=== PATIENT | female | born 1955 | race Caucasian/White ===

== ENCOUNTER 2016-11-16 13:17 | Emergency (ER) | payer OTHER ==
[~2016-11-16] VITALS: Ht 167.6 cm; Wt 61.2 kg
[~2016-11-16 13:17] MED LIST: DILAUDID 4 MG TA4 MG PO; ENDOCET 325 MG-1 TAB PO; METHADONE5 MG; MORPHINE SULFAT30 M5 PO; OXYCODONE HCL15 MG PO; OXYCONTIN30 MG PO; PREDNISONE 10MG10 M1 PO; PREDNISONE10 MG PO; ROXICODONE30 MG PO; ZOLOFT25 MG PO
[2016-11-16] MEDS ORDERED: DILAUDID2 M1 PO (15:55)
--- NOTE | 2016-11-16 15:56 | ED NECK/BACK PAIN COMPLAINT ---
History of Present Illness General Chief Complaint: Low Back Pain/Injury Stated Complaint: BACK PAIN Source: patient Exam Limitations: no limitations Vital Signs & Intake/Output Vital Signs & Intake/Output Vital Signs Date Time Temp Pulse Resp B/P Pulse O2 O2 Flow FiO2 Ox Delivery Rate 11/16 1615 97.4 78 18 114/75 96 Room Air Room Air 11/16 1322 97.2 79 16 115/80 95 Room Air Allergies Coded Allergies: MDX - SULFA (sulfonamide) (SULFA (SULFONAMIDE)) (Intermediate, HEADLEY IN CHEST, FEEL LIKE SOMETHING FIGHTING IN CHEST PER PT 01/17/15) MDX - Ibuprofen (IBUPROFEN) (HEADLEY IN CHEST AND FEELS SICK PER PT 01/17/15) Uncoded Allergies: FISH DYES? (Intermediate, SEVERE HEADACHE, N/V 01/17/15) Reconcile Medications Hydromorphone HCl (Dilaudid) 2 MG TABLET 1 TAB PO BIDP PRN pain OXYCODONE HCL (Oxycodone HCl) 15 MG TABLET 1 TAB PO 4 TIMES/DAY PRN PAIN ( Reported) OXYCODONE HCL (Oxycontin) 30 MG TAB.ER.12H 1 TAB PO TID PRN PAIN (Reported) Sertraline Hydrochloride (Zoloft) 25 MG TAB 75 MG PO DAILY MENTAL HEALTH ( Reported) Triage Note: 61 Y/O FEMALE C/O "SHARP STABBING" PAIN TO R LOWER BACK RADIATING INTO R GROIN. CONSTANT SINCE ONSET. PT STATES SHE HAS A HX OF DISC PROBLEMS AND SHE OCCASIONALLY GETS PAIN LIKE THIS BUT IT USUALLY GOES AWAY. STATES "ITS USUALLY A NERVE THING". PT DENIES ANY RECENT INJURIES OR TRAUMA. DENIES PAIN RADIATING DOWN LEG. DENIES URINARY SYMPTOMS. TAKES DAILY PAIN MEDS AND TOOK THIS AM WITH NO CHANGE IN PAIN. DECLINES OFFER OF W/C. Triage Nurses Notes Reviewed? yes Onset: Gradual Duration: worse persistent since (3 days) Timing: recent history Quality/Severity: moderate Location: paraspinous muscles Radiation: none Context: old injury Method of Injury: twisted Modifying Factors: immobilization, movement HPI: Patient is a 61-year-old female presenting to the emergency department with chief complaint of right low back pain worsening over the past 3-4 days. History of back pain, on chronic pain medication, on pain management. She says she lifting a 40 pound bag of cat food, she did not have any pain initially but then started experiencing pain later that evening. Denies any urinary incontinence or retention. No dysuria urgency or frequency. Denies hematuria. Movement seems to make the pain worse nothing seems to make it better. She's been taking her abdominal pain medication without relief. Denies any weakness. (ASAD BROUSSARD) Past History Travel History Traveled to [place] past 21 day No Medical History Any Pertinent Medical History? 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 No (ASAD BROUSSARD) Review of Systems Review of Systems Constitutional: Reports: no symptoms. Comments Review of systems: See HPI, All other systems negative. Constitutional, no chills fever or weight loss HEENT: No visual changes no sore throat no congestion Cardiovascular: No chest pain ,palpitation Skin, no jaundice no rashes Respiratory: No dyspnea cough sputum or hemoptysis GI: No nausea no vomiting : No dysuria No hematuria Muscle skeletal: no neck pain, Neurologic: No numbness no confusion Psych: No stress anxiety or depression,. Heme/endocrine: No bruising no bleeding no polyuria or polydipsia Immunology: No splenectomy or history of AIDS (ASAD BROUSSARD) Physical Exam Physical Exam General Appearance: well developed/nourished, no apparent distress, alert, awake , comfortable Neck: normal inspection, supple, full range of motion, normal alignment Comments: Well-developed well-nourished person in no acute distress HEENT: Pupils equally round and reactive to light and accommodation. Nose is atraumatic. Neck: No C-spine tenderness, full range of motion Back: Tender to palpation in the right paraspinal muscles of the lumbar spine. No midline tenderness. Limited range of motion with forward flexion. Negative modified straight leg raise bilaterally. Cardiovascular: Regular rate and rhythms no murmurs rubs or gallops, normal JVP Respiratory: Chest nontender. No respiratory distress.breath sounds clear to auscultation bilaterally Abdomen: Soft, nontender nondistended Extremity: No edema, difficulty with right hip flexion secondary to pain in the low back. Neuro: Alert oriented x3, motor sensory normal, patellar reflexes are 2+ bilaterally. Skin: No appreciable rash on exposed skin, skin is warm and dry. Psych: Mood and affect is normal, memory and judgment is normal. (ASAD BROUSSARD) Progress Differential Diagnosis: cauda equina syn, herniated disc, myofascial strain, pyelo/UTI, sciatica, T/L spine injury Plan of Care: Current Medications Sig/Jeremiah Start time Last Medication Dose Stop Time Status Admin Hydromorphone HCl 2 MG ONCE ONE 11/16 1600 UNVr (Dilaudid) 11/16 1601 Comments: 11/16/2016 4:14:25 PM patient is neurovascularly intact with reproducible pain in the right lumbar per spell region. Likely exacerbation of chronic pain. No signs of UTI. Patient denying any urinary symptoms. Patient given by mouth Dilaudid on arrival. She reports that she cannot take anti-inflammatories or steroids or muscle relaxers. 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 She is not driving home. she has a ride. no signs of cauda equina. (ASAD BROUSSARD) Departure Departure Time of Disposition: 1554 Disposition: HOME OR SELF CARE Condition: Stable Clinical Impression Primary Impression: Back pain Qualifiers: Back pain location: low back pain Chronicity: chronic Back pain laterality: right Sciatica presence: without sciatica Qualified Codes: M54.5 - Low back pain; G89.29 - Other chronic pain Referrals: JAMES SMITH MD (PCP/Family) Additional Instructions: follow up with your pain specialist , keep appt for wednesday. take dilaudid as prescribed. return for worsening symptoms or concerns. Departure Forms: Customer Survey General Discharge Information Prescriptions: Current Visit Scripts Hydromorphone HCl (Dilaudid) 1 TAB PO BIDP PRN pain #10 TAB (ASAD BROUSSARD) PA/REFRIGERATION ENGINE OPERATOR Co-Sign Statement Statement: ED Attending supervision documentation- [] I saw and evaluated the patient. I have also reviewed all the pertinent lab results and diagnostic results. I agree with the findings and the plan of care as documented in the PA's/REFRIGERATION ENGINE OPERATOR's documentation. [X] I have reviewed the ED Record and agree with the PA's/REFRIGERATION ENGINE OPERATOR's documentation. [] Additions or exceptions (if any) to the PAs/REFRIGERATION ENGINE OPERATOR's note and plan are summarized below: [] (JUNIOR GAMBOA DO)
[2016-11-16 16:15] VITALS: BP 114/75
== END 2016-11-16 16:15 ==
LOC: ERH 13:17
DX: M54.5 Low back pain (principal)

== ENCOUNTER 2016-11-18 17:38 | Emergency (ER) | payer OTHER ==
[~2016-11-18] VITALS: Ht 167.6 cm; Wt 61.2 kg
[~2016-11-18 17:38] MED LIST changes: +DILAUDID2 M1 PO
--- NOTE | 2016-11-18 19:43 | ED NECK/BACK PAIN COMPLAINT ---
History of Present Illness General Chief Complaint: Low Back Pain/Injury Stated Complaint: LOW BACK PAIN SEEN WEDNESDAY FOR SAME Source: patient, old records Exam Limitations: no limitations Vital Signs & Intake/Output Vital Signs & Intake/Output Vital Signs Date Time Temp Pulse Resp B/P Pulse O2 O2 Flow FiO2 Ox Delivery Rate 11/18 2154 98.2 80 16 157/80 98 Room Air Room Air 11/18 1746 97.4 78 18 133/79 97 Room Air ED Intake and Output 11/19 0000 11/18 1200 Intake Total 0 Output Total Balance 0 Intake, Oral 0 Patient 135 lb Weight Allergies Coded Allergies: MDX - SULFA (sulfonamide) (SULFA (SULFONAMIDE)) (Intermediate, HEADLEY IN CHEST, FEEL LIKE SOMETHING FIGHTING IN CHEST PER PT 01/17/15) MDX - Ibuprofen (IBUPROFEN) (HEADLEY IN CHEST AND FEELS SICK PER PT 01/17/15) Uncoded Allergies: FISH DYES? (Intermediate, SEVERE HEADACHE, N/V 01/17/15) Reconcile Medications Hydromorphone HCl (Dilaudid) 2 MG TABLET 1 TAB PO BIDP PRN breakthrough pain Hydromorphone HCl (Dilaudid) 2 MG TABLET 1 TAB PO BIDP PRN pain OXYCODONE HCL (Oxycodone HCl) 15 MG TABLET 1 TAB PO 4 TIMES/DAY PRN PAIN ( Reported) OXYCODONE HCL (Oxycontin) 30 MG TAB.ER.12H 1 TAB PO TID PRN PAIN (Reported) Sertraline Hydrochloride (Zoloft) 25 MG TAB 75 MG PO DAILY MENTAL HEALTH ( Reported) Triage Note: C/O R SIDED LOW BACK PAIN RADIAITNG TO R GROIN AND LEFT SIDE OF BACK X 8 DAYS. SEEN HERE ON 11/16. PAIN WORSE, NOT RELIEVED WITH DILAUDID. Triage Nurses Notes Reviewed? yes Onset: Abrupt Duration: week(s): (1) Quality/Severity: moderate, severe Location: paraspinous muscles Radiation: buttocks Context: lifting Loss of Consciousness: no loss of consciousness Modifying Factors: movement, pain medication, rest Associated Symptoms: denies HPI: 61-year-old female with history of chronic regional pain syndrome chronic back pain presents emergency room complaining of bilateral however right greater than left lower back pain that has been present for the past 1 week after she states she lifted a 40 pound bag of cat litter. The patient is seen by pain management in [place] and is on opana, and oxycodone. there was no recent new injury or trauma. pt was taking dilaudid for breakthrough pain however states no longer helping. Denies any urinary incontinence or retention. she denies any urinary symptoms- no dysuria urgency or frequency. change in position makes pain worse. pain radiates into her right buttocks. no abd pain, n/vd. no chest pain, fever or chills (BALTAZAR KLEIN) Past History Travel History Traveled to [place] past 21 day No Medical History Any Pertinent Medical History? 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 No (BALTAZAR KLEIN) Review of Systems Review of Systems Constitutional: Reports: see HPI. All Other Systems: Reviewed and Negative Comments Review of systems: See HPI, All other systems negative. Constitutional, no chills no fever, no malaise HEENT: No visual changes no sore throat no congestion Cardiovascular: No chest pain , no palpitation Skin, no rashes, no change in skin Respiratory: No dyspnea no cough no sputum GI: No nausea no vomiting, no diarrhea, : No dysuria Muscle skeletal: No joint pain, back pain, no neck pain Neurologic: No numbness , no headache Psych: No stress Heme/endocrine: No bruising no bleeding Immunology: No lymphadenopathy (BALTAZAR KLEIN) Physical Exam Physical Exam General Appearance: well developed/nourished, alert, awake Neck: normal inspection, supple, full range of motion Comments: Well-developed well-nourished person in no acute distress HEENT: Normal EENT exam; PERRL, EOMI, . HEAD is atraumatic. moist mucous membranes. Neck: Supple, , normal range of motion Back: Right sided paralumbar muscle tenderness palpation no midline tenderness no ecchymosis or signs of trauma no CVA tenderness. Full range of motion Cardiovascular: Regular rate and rhythms no murmurs rubs Respiratory: Chest nontender.There were no bony deformities, no asymmetry. No respiratory distress. Patient speaking in full complete sentences. Breath sounds clear to auscultation bilaterally: NO W/R/R Abdomen: Soft, nontender nondistended Extremity: No edema, full range of motion of extremities positive straight leg raise to the right lower extremity, 5 out of 5 strength to bilateral lower extremities Neuro: Alert oriented x3, motor sensory normal,There were no obvious focal neurologic abnormalities. Skin: No appreciable rash on exposed skin, skin is warm and dry. Psych: Mood and affect is normal, memory and judgment is normal. (BALTAZAR KLEIN) Progress Differential Diagnosis: cauda equina syn, herniated disc, myofascial strain, pyelo/UTI, sciatica, spinal cord inj, T/L spine injury, ureterolithiasis Plan of Care: CAT scan ordered patient make you Dilaudid 1 mg IM Case discussed with Dr. Berry. I discussed with the patient at least on her CAT scan findings need for close follow-up with her pain management physician primary care information is provided for neurosurgeon, advised close follow-up rest ice the patient states she is allergic to anti-inflammatories prednisone and muscle relaxers Patient clinically looks well. No urinary bowel dysfunction. No numbness in the genital area. Strength intact. Gross sensation intact. Patient resting comfortably and in no apparent distress. Pain is worse with range of motion. Pain is reproducible IN back with no bruising or ecchymosis noted. Patient is to follow-up with primary care doctor. May need MRI of the lower back at some point time. No concerns for cauda equina at this point time. I considered this diagnosis but patient does not have any symptoms consistent with cauda equina. Patient has no secondary causes of back pain. No cardiac, pulmonary, or abdominal complaints. No abdominal pain on exam. Cardiac pulmonary exam within normal limits. No rashes, afebrile, denies recent weight loss, dizziness, lightheadedness Diagnostic Imaging: Viewed by Me: CT Scan. Discussed w/RAD: CT Scan. (BALTAZAR KLEIN) Departure Departure Time of Disposition: 2140 Disposition: HOME OR SELF CARE Condition: Stable Clinical Impression Primary Impression: Lumbar radiculopathy Referrals: JAMES SMITH MD (PCP/Family) MILAGRO ARCHIBALD MD Additional Instructions: Follow-up with your pain management physician as well as spine surgeon Dr. archibald. Continue taking your pain medication as prescribed. Dilaudid for breakthrough pain. Interchange ice and heat your prescription was sent to your pharmacy Departure Forms: Customer Survey General Discharge Information Prescriptions: Current Visit Scripts Hydromorphone HCl (Dilaudid) 1 TAB PO BIDP PRN breakthrough pain #10 TAB (BALTAZAR KLEIN) PA/SPORTS MARKETER Co-Sign Statement Statement: ED Attending supervision documentation- [] I saw and evaluated the patient. I have also reviewed all the pertinent lab results and diagnostic results. I agree with the findings and the plan of care as documented in the PA's/SPORTS MARKETER's documentation. [X] I have reviewed the ED Record and agree with the PA's/SPORTS MARKETER's documentation. [] Additions or exceptions (if any) to the PAs/SPORTS MARKETER's note and plan are summarized below: [] (BRAYDEN HAINES,GAST[place])
--- NOTE | 2016-11-18 21:23 | CT SCAN REPORT ---
EXAMINATION: CT LUMBAR SPINE WITHOUT CONTRAST CLINICAL INFORMATION: Right lower back pain with radiation to the buttocks. COMPARISON: Lumbar spine MRI December 14, 2009. TECHNIQUE: Helical non-contrast CT images were obtained through the lumbar spine and 1.25 and 2.5 mm axial reconstructions were reviewed along with sagittal and coronal MPRs. FINDINGS: There are 5 nonrib-bearing lumbar-type vertebral bodies. Lumbar alignment is normal. There is disc calcification and there is disc volume loss at L5-S1. There is mild disc volume loss at L2-L3 that is stable. The remaining disc volumes are maintained. Vertebral body heights are preserved. There are no acute fractures and there are no acute subluxations. Partially imaged chronic superior endplate Schmorl's node at T12. The gallbladder has been surgically removed. There is sigmoid diverticulosis. At L1-L2 there is no definite disc contour abnormality. No central canal stenosis and no foraminal stenosis. At L2-L3 there is a diffuse annular disc bulge and there is mild bilateral facet arthropathy. No definite significant central canal stenosis. Mild foraminal narrowing bilaterally is likely unchanged. At L3-L4 there is a diffuse annular disc bulge with no central canal stenosis. There is mild foraminal narrowing bilaterally. At L4-L5 there is a small diffuse annular disc bulge with no central canal stenosis and no appreciable foraminal stenosis. At L5-S1 there is asymmetric soft tissue within the right L5 lateral recess that correlates with a congenitally conjoined right L5-S1 nerve root on the axial T1-weighted series from the previous lumbar spine MRI. No definite central canal stenosis nor significant foraminal stenosis is appreciated. IMPRESSION: Likely stable appearing degenerative changes throughout the lumbar spine in comparison to December 14, 2009 MRI. A congenitally conjoined right L5-S1 nerve root explains asymmetric soft tissue within the right L5 lateral recess as demonstrated on the previous MRI. In the setting of radiculopathy, MRI would be more sensitive in assessing for any nerve root impingement. There are no acute osseous findings.
[2016-11-18] MEDS ORDERED: DILAUDID2 M1 PO (21:42)
[2016-11-18 21:55] VITALS: BP 157/80
== END 2016-11-18 21:58 ==
LOC: ERH 17:38
DX: M54.16 Radiculopathy, lumbar region (principal)
CPT/HCPCS: 96372